=== PATIENT | male | born 1985 | race Caucasian/White ===

== ENCOUNTER 2017-06-24 17:09 | Emergency (ER) | payer OTHER ==
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
[2017-06-24] MEDS ORDERED: Ketorolac Tromethamine 30 MG/ML VIAL ONE (19:43)
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
[2017-06-24] MEDS ORDERED: Lidocaine 1% PF 5 ML VIAL ONE (19:52)
[2017-06-24] MEDS ORDERED: Adacel (T-DAP) 0.5 ML VIAL ONE (20:02)
[2017-06-24] MEDS ORDERED: Bacitracin Zinc 1 Packet ONE (20:59)
== END 2017-06-24 21:14 | disposition home or self-care (01) ==
LOC: ERS 17:09
DX: S01.81XA Laceration without foreign body of other part of head, initial encounter (principal); S40.811A Abrasion of right upper arm, initial encounter; J45.909 Unspecified asthma, uncomplicated; F41.9 Anxiety disorder, unspecified; F90.9 Attention-deficit hyperactivity disorder, unspecified type; F17.220 Nicotine dependence, chewing tobacco, uncomplicated; V19.9XXA Pedal cyclist (driver) (passenger) injured in unspecified traffic accident, initial encounter
CPT/HCPCS: 12014; 70450; 70486; 90471; 90715; 96372; J1885; J2001